=== PATIENT | male | born 1950 ===

== ENCOUNTER 2024-08-29 08:41 | Day surgery (SDC) | payer OTHER ==
[~2024-08-29] VITALS: Ht 177.8 cm; Wt 83.5 kg
[~2024-08-29 08:41] MED LIST: Lactated Ringer's 1,000 ML IV ONE; propofoL 50 ML IV ONE
[2024-08-29] MEDS ORDERED: ATOR40TA (09:26)
[2024-08-29] MEDS ORDERED: ASPI81CH (09:27)
[2024-08-29] MEDS ORDERED: CLARITIN5 MG (09:28)
[2024-08-29] MEDS ORDERED: Lactated Ringer's 1,000 ML IV ONE (10:40)
== END 2024-08-29 12:15 | disposition home or self-care (01) ==
LOC: ORSCSDS 08:41
PROVIDERS: Internal Medicine Gastroenterology
PROC: 0DB78ZX Excision of Stomach, Pylorus, Via Natural or Artificial Opening Endoscopic, Diagnostic (ICD-10-PCS; principal; 2024-08-29 10:15)
PROC: 0DBP8ZX Excision of Rectum, Via Natural or Artificial Opening Endoscopic, Diagnostic (ICD-10-PCS; principal; 2024-08-29 10:15)
PROC: 0DBM8ZX Excision of Descending Colon, Via Natural or Artificial Opening Endoscopic, Diagnostic (ICD-10-PCS; principal; 2024-08-29 10:15)
PROC: 0DB58ZX Excision of Esophagus, Via Natural or Artificial Opening Endoscopic, Diagnostic (ICD-10-PCS; principal; 2024-08-29 10:15)
PROC: 0DBK8ZX Excision of Ascending Colon, Via Natural or Artificial Opening Endoscopic, Diagnostic (ICD-10-PCS; principal; 2024-08-29 10:15)
DX: K21.9 Gastro-esophageal reflux disease without esophagitis (principal); K20.0 Eosinophilic esophagitis; R13.10 Dysphagia, unspecified; Z12.11 Encounter for screening for malignant neoplasm of colon; R19.5 Other fecal abnormalities; K57.30 Diverticulosis of large intestine without perforation or abscess without bleeding; D12.2 Benign neoplasm of ascending colon; D12.4 Benign neoplasm of descending colon; K63.5 Polyp of colon; K62.1 Rectal polyp; F17.210 Nicotine dependence, cigarettes, uncomplicated; Z79.899 Other long term (current) drug therapy; Z79.82 Long term (current) use of aspirin
CPT/HCPCS: 88305; 88342; J2704; J7120